=== PATIENT | male | born 1940 | race Two or more races ===

== ENCOUNTER 2024-04-12 22:02 | Emergency (ER) | payer OTHER ==
[~2024-04-12] VITALS: Ht 175.3 cm; Wt 75.7 kg
[2024-04-12] MEDS ORDERED: METHIMAZOLE10 MG (22:18)
[2024-04-12] MEDS ORDERED: GLUMETZA500 MG (22:18)
[2024-04-12] MEDS ORDERED: RAMIPRIL10 MG (22:19)
[2024-04-12] MEDS ORDERED: VITAMIN D325 MC2 (22:19)
[2024-04-12] MEDS ORDERED: ELIQUIS5 MG PO (22:20)
[2024-04-12] MEDS ORDERED: AMIODARONE HCL100 MG PO (22:20)
[2024-04-12] MEDS ORDERED: CARVEDILOL ER40 MG (22:20)
[2024-04-13 01:11] LABS: HEMATOCRIT 26.3 % (39.0-48.0); MEAN CELL VOLUME 84.3 fL (80.0-100.00); MEAN CORPUSCULAR HEMOGLOBIN 28.2 pg (27.00-32.0); MEAN CORPUSCULAR HGB CONC 33.4 g/dl (32.0-36.0); PLATELET COUNT 184 K/uL (150-450); RED BLOOD COUNT 3.11 M/uL (4.00-6.00); RED CELL DISTRIBUTION WIDTH 16.1 % (11.5-14.5)
[2024-04-13 01:12] LABS: INR 1.21; PARTIAL THROMBOPLASTIN TIME 30.9 SECONDS (22.0-34.0)
[2024-04-13 01:14] LABS: CREATININE SERUM 1.75 mg/dL (0.70-1.30); GFR 37.5; POTASSIUM 4.46 mEq/L (3.5-5.1)
[2024-04-13 01:15] LABS: HEMOGLOBIN 8.8 g/dL (13-16.00)
[2024-04-13] MEDS ORDERED: 0.9 % SODIUM CHLORIDE 1,000 ML IV STA (02:07)
[2024-04-13] MEDS ORDERED: BARIUM SULFATE 450 ML ORAL.SUSP PO ONE (02:10)
== END 2024-04-13 07:16 | disposition home or self-care (01) ==
LOC: ER 22:03
PROVIDERS: Emergency Medicine
DX: R53.81 Other malaise (principal); D64.9 Anemia, unspecified
CPT/HCPCS: 36415; 74177; 96365; 96366; 99284; J7030; Q9965

== ENCOUNTER 2025-01-20 19:36 | Inpatient (IN) | payer OTHER ==
[~2025-01-20] VITALS: Ht 175.3 cm; Wt 72.1 kg
[~2025-01-20 19:36] MED LIST: AMIODARONE HCL100 MG PO; CARVEDILOL ER40 MG; ELIQUIS5 MG PO; GLUMETZA500 MG; METHIMAZOLE10 MG; RAMIPRIL10 MG; VITAMIN D325 MC2
[2025-01-20] MEDS ORDERED: FARXIGA10 MG PO (19:49)
[2025-01-20] MEDS ORDERED: METOPROLOL SUCC25 MG PO (19:49)
[2025-01-20] MEDS ORDERED: NORVASC2.5 MG PO (19:50)
--- NOTE | 2025-01-20 20:11 | NUR ---
SE RECIBE PTE ALERTA Y ORIENTADO X3 CUAL REFIERE PRESENTA DESBALANCE HORMONAL REALCIONADO A 2 NODULOS QUE TIENE EN AREA DE LA T[place]OIDES. PRESENTA PULSO:142 LAT/MIN. SE REALIZA EKG Y SE PRESENTA A QUIEN REFIERE UBICAR EN OBS Y MONITOR CARDIACO.
[2025-01-20] MEDS ORDERED: 0.9 % SODIUM CHLORIDE 1,000 ML IV STA (21:33)
[2025-01-20] MEDS ORDERED: DILTIAZEM HCL 25 MG/5 ML VIAL IV STA (21:35)
[2025-01-20] MEDS ORDERED: DILTIAZEM HCL 25 MG/5 ML VIAL IV ONE (23:56)
[2025-01-21 00:42] LABS: BASO % 0.4 % (0.1-1.2); EOS # 0.46 (0.04-0.54); EOS % 5.5 % (0.7-7.0); HEMATOCRIT 33.3 % (40.1-51.0); HEMOGLOBIN 10.4 g/dL (13.7-17.5); LYMPH # 0.61 (1.18-3.74); LYMPH % 7.3 % (19.3-53.1); MEAN CORPUSCULAR HEMOGLOBIN 27.3 pg (25.6-32.2); MONO # 0.54 (0.24-0.82); MONO % 6.5 % (4.7-12.5); NEUT # 6.67 (1.56-6.13); NEUT % 79.9 % (34.0-71.1); PLATELET COUNT 189 K/uL (163-369); RED BLOOD COUNT 3.81 M/uL (4.63-6.08)
--- NOTE | 2025-01-21 00:45 | NUR ---
SE ORIENTA A PACIENTE SOBRE TX MEDICO Y EL MISMO REFIERE ENTENDER Y ACEPTAR LINDA. SE PROCEDE A SKYE MUESTRAS DE LABORATORIO Y A CANALIZAR PACIENTE BAJO MEDIDAS ASEPTICAS. SE ADMINISTRA MEDICAMENTO YOUSUF ORDEN MEDICA BAJO MEDIDAS ASEPTICAS.
[2025-01-21 01:16] LABS: ALBUMIN 3.6 gm/dL (3.4-5.0); BILIRUBIN TOTAL 0.54 mg/dL (0.3-1.2); CALCIUM 8.8 mg/dL (8.5-10.1); GFR 37.91; GLOBULINA 3.6 G/DL (2.4-3.5); POTASSIUM 4.68 mEq/L (3.5-5.1); TOTAL PROTEIN 7.2 gm/dL (6.4-8.2); TSH 1.36 uIU/mL (0.358-3.74)
[2025-01-21 01:19] LABS: CREATININE SERUM 1.73 mg/dL (0.70-1.30)
[2025-01-21] MEDS ORDERED: DILTIAZEM HCL 125 MG in 0.9 % SODIUM CHLORIDE 125 ML IV SCH (07:00)
--- NOTE | 2025-01-21 08:29 | NUR ---
SE RECIBE PTE ALERTA Y ORIENTADO X3 EN CAMA BAJA CON BARANDAS ELEVADAS. CONECTADO A MONITOR CARDIACO Y SATUROMETRO. CANALIZADO CON BRAZO DERECHO CON ANGIO #18 PATENTE LINA DE EDEMA Y ENROJEICMIENTO. RECIBIENDO .9NSS BAJANDO A 80MLS/HR. PEDINTE CONSULTA CON DR. TIFFANIE HAMPTON.
[2025-01-21] MEDS ORDERED: 0.9 % SODIUM CHLORIDE 1,000 ML IV SCH (10:45)
[2025-01-21 12:44] VITALS: BP 124/82
[2025-01-21 14:02] VITALS: O2SAT 98
[2025-01-21 16:36] VITALS: O2SAT 96
[2025-01-21 18:23] VITALS: BP 109/72
[2025-01-21 19:22] VITALS: O2SAT 96
[2025-01-21] MEDS ORDERED: DILTIAZEM HCL 125MG/25ML VIAL IV ONE (22:03)
[2025-01-21] MEDS ORDERED: METOPROLOL TARTRATE 25 MG TABLET PO SCH (22:19)
[2025-01-21] MEDS ORDERED: ENOXAPARIN SODIUM 80 MG/0.8 ML SYRINGE SUBCUTANEO SCH (22:22)
[2025-01-22] VITALS (7 sets, daily range): BP systolic 106–133; BP diastolic 62–86; O2SAT 90–94
[2025-01-22] MEDS ORDERED: DILTIAZEM HCL 125MG/25ML VIAL IV ONE ×2 (05:38→14:55)
[2025-01-22 14:56] LABS: FREE TRIODOTIRONINE 1.71 pg/ml (2.18-3.98); T4 FREE 1.18 NG/ML (0.76-1.46); T4 TOTAL 7.72 UG/DL (4.5-12.1)
[2025-01-22] MEDS ORDERED: FUROsemide 20 MG/2 ML VIAL IV STA (19:14)
[2025-01-22] MEDS ORDERED: AMIODARONE HCL 50 MG/ML AMPUL IV SCH (22:00)
[2025-01-23] VITALS (8 sets, daily range): BP systolic 125–158; BP diastolic 77–88; O2SAT 90–95
[2025-01-23] MEDS ORDERED: DILTIAZEM HCL 125MG/25ML VIAL IV ONE (04:36)
[2025-01-23] MEDS ORDERED: AMIODARONE HCL 900 MG in DEXTROSE 5 % IN WATER 500 ML IV SCH (06:30)
[2025-01-23] MEDS ORDERED: FUROsemide 20 MG/2 ML VIAL IV SCH (09:00)
[2025-01-23] MEDS ORDERED: METOPROLOL TARTRATE 50 MG TABLET PO SCH (09:00)
[2025-01-24] VITALS (9 sets, daily range): BP systolic 123–141; BP diastolic 56–89; O2SAT 90–95
[2025-01-24] MEDS ORDERED: DILTIAZEM HCL 125MG/25ML VIAL IV ONE (06:16)
[2025-01-24 07:12] LABS: ALBUMIN 3.6 gm/dL (3.4-5.0); BILIRUBIN TOTAL 1.09 mg/dL (0.3-1.2); CREATININE SERUM 1.63 mg/dL (0.70-1.30); GFR 40.61; GLOBULINA 4.4 G/DL (2.4-3.5); POTASSIUM 4.49 mEq/L (3.5-5.1)
[2025-01-24] MEDS ORDERED: METOPROLOL TARTRATE 50 MG TABLET PO SCH (09:00)
[2025-01-25] VITALS (8 sets, daily range): BP systolic 109–127; BP diastolic 64–77; O2SAT 90–100
[2025-01-25] MEDS ORDERED: DILTIAZEM HCL 125MG/25ML VIAL IV ONE (14:45)
[2025-01-26] VITALS (8 sets, daily range): BP systolic 97–127; BP diastolic 60–79; O2SAT 90–99
[2025-01-26 12:40] LABS: ALBUMIN 3.7 gm/dL (3.4-5.0); BILIRUBIN TOTAL 0.78 mg/dL (0.3-1.2); CALCIUM 9.1 mg/dL (8.5-10.1); GFR 32.07; GLOBULINA 4.2 G/DL (2.4-3.5); POTASSIUM 3.9 mEq/L (3.5-5.1); TOTAL PROTEIN 7.9 gm/dL (6.4-8.2)
[2025-01-26] MEDS ORDERED: AMIODARONE HCL 200 MG TABLET PO SCH (17:23)
[2025-01-27] VITALS (9 sets, daily range): BP systolic 113–120; BP diastolic 71–78; O2SAT 95–100
[2025-01-27] MEDS ORDERED: METOPROLOL TARTRATE 25 MG TABLET PO SCH (01:00)
[2025-01-27 07:46] LABS: ALBUMIN 3.1 gm/dL (3.4-5.0); BILIRUBIN TOTAL 0.62 mg/dL (0.3-1.2); CALCIUM 8.4 mg/dL (8.5-10.1); CREATININE SERUM 1.61 mg/dL (0.70-1.30); GFR 41.19; GLOBULINA 3.5 G/DL (2.4-3.5); POTASSIUM 3.77 mEq/L (3.5-5.1); TOTAL PROTEIN 6.6 gm/dL (6.4-8.2)
[2025-01-27] MEDS ORDERED: METOPROLOL TARTRATE 100 MG TABLET PO SCH (09:54)
[2025-01-28 00:10] VITALS: BP 118/79; O2SAT 95
[2025-01-28 01:00] VITALS: O2SAT 96
[2025-01-28 05:00] VITALS: O2SAT 95
[2025-01-28 06:53] LABS: CALCIUM 8.7 mg/dL (8.5-10.1); CREATININE SERUM 1.44 mg/dL (0.70-1.30); GFR 46.85; POTASSIUM 4.09 mEq/L (3.5-5.1)
[2025-01-28 07:36] LABS: FREE TRIODOTIRONINE 1.93 pg/ml (2.18-3.98); T4 TOTAL 11.46 UG/DL (4.5-12.1); TSH 1.16 uIU/mL (0.358-3.74)
[2025-01-28 07:37] LABS: T4 FREE 1.53 NG/ML (0.76-1.46)
[2025-01-28 08:23] VITALS: BP 113/76
[2025-01-28 09:09] VITALS: O2SAT 95
== END 2025-01-28 11:35 | disposition home or self-care (01) | DRG 310 ==
LOC: ER 19:42 → MEDJ 01-21 11:09
PROVIDERS: Internal Medicine; Internal Medicine Endocrinology, Diabetes & Metabolism; Internal Medicine Nephrology; ADMIT Internal Medicine; ATTEND Internal Medicine
PROC: B246ZZZ Ultrasonography of Right and Left Heart (ICD-10-PCS; principal; 2025-01-21)
PROC: 4A12X4Z Monitoring of Cardiac Electrical Activity, External Approach (ICD-10-PCS; 2025-01-21)
DX: I48.20 Chronic atrial fibrillation, unspecified (principal); R00.2 Palpitations; R00.0 Tachycardia, unspecified; E05.90 Thyrotoxicosis, unspecified without thyrotoxic crisis or storm; D64.9 Anemia, unspecified; J44.9 Chronic obstructive pulmonary disease, unspecified

== ENCOUNTER 2025-02-18 00:42 | Emergency (ER) | payer OTHER ==
[~2025-02-18] VITALS: Ht 175.3 cm; Wt 68.9 kg
[~2025-02-18 00:42] MED LIST changes: +FARXIGA10 MG PO; +METOPROLOL SUCC25 MG PO; +NORVASC2.5 MG PO
[2025-02-18] MEDS ORDERED: FARXIGA10 MG (01:05)
[2025-02-18] MEDS ORDERED: METOPROLOL TAR100 MG (01:06)
[2025-02-18] MEDS ORDERED: TAPAZOLE5 MG (01:06)
[2025-02-18] MEDS ORDERED: AMIODARONE HCL200 MG (01:06)
[2025-02-18 01:53] LABS: BASO % 0.9 % (0.1-1.2); EOS # 0.39 (0.04-0.54); EOS % 8.9 % (0.7-7.0); HEMATOCRIT 35.9 % (40.1-51.0); HEMOGLOBIN 11.2 g/dL (13.7-17.5); LYMPH # 0.62 (1.18-3.74); LYMPH % 14.2 % (19.3-53.1); MEAN CORPUSCULAR HEMOGLOBIN 27.5 pg (25.6-32.2); MONO % 11.4 % (4.7-12.5); NEUT # 2.82 (1.56-6.13); NEUT % 64.4 % (34.0-71.1); PLATELET COUNT 215 K/uL (163-369); RED BLOOD COUNT 4.07 M/uL (4.63-6.08); RED CELL DISTRIBUTION WIDTH 16.3 % (11.6-14.4)
[2025-02-18 02:36] LABS: INR 1.23; PARTIAL THROMBOPLASTIN TIME 27.6 SECONDS (22.0-34.0); PROTHROMBIN TIME 13.2 SECONDS (9.0-11.5)
[2025-02-18 03:06] LABS: ABG PH 7.371 (7.35-7.45); BASE EXCESS -1.9 mmol/l; BICARBONATE 23.2 mmol/l (23-25); SaO2 94.4 %; Tco2 24.5 mmol/l; allen test SATISFACTORY; mode ROOM AIR; o2 21 %; puncture site RADIAL RIGHT
[2025-02-18 03:07] LABS: ABG PO2 75.7 mmHg (80-100)
[2025-02-18 03:32] LABS: ALBUMIN 3.6 gm/dL (3.4-5.0); BILIRUBIN TOTAL 0.51 mg/dL (0.3-1.2); CALCIUM 9.1 mg/dL (8.5-10.1); CREATININE SERUM 1.97 mg/dL (0.70-1.30); GFR 32.63; GLOBULINA 3.6 G/DL (2.4-3.5); POTASSIUM 5.08 mEq/L (3.5-5.1); TOTAL PROTEIN 7.2 gm/dL (6.4-8.2)
[2025-02-18] MEDS ORDERED: FUROsemide 20 MG/2 ML VIAL IV STA (05:14)
[2025-02-18] MEDS ORDERED: LASIX20 MG PO (06:44)
== END 2025-02-18 08:25 ==
LOC: ER 01:12
PROVIDERS: General Practice
DX: I50.9 Heart failure, unspecified (principal); R06.02 Shortness of breath; I10 Essential (primary) hypertension; E11.9 Type 2 diabetes mellitus without complications
CPT/HCPCS: 36415; 71045; 82803; 93005; 93041; 94760; 96365; 99283; J3490